=== PATIENT | female | born 1980 | race African-American/Black ===

== ENCOUNTER 2016-05-15 19:17 | Emergency (ER) | payer OTHER ==
--- NOTE | ~2016-05-15 | CT71 ---
[facility] RADIOLOGY TEXT RESULTS PATIENT: ELOINA CRYSTAL LOCATION: [facility] : 76 UNIT #: [id number] AGE: [address]: Brandy White MD SEX: F ORDER DR: [id number] [address] [address] [id number] E MR#: [id number] Acc #: [id number] NAME: ELOINA CRYSTAL : 1980 SEX: F STUDY DATE/TIME: 05/15/2016 20:11 UNIT: [facility] ROOM: STUDY DESCRIPTION: CT Head Wo Contrast Attending Physician: Brandy White M.D. Ordering Physician: Brandy White M.D. Primary Care Physician: Primary Care Physician No MEDICAL IMAGING REPORT This report is preliminary unless electronic signature is present EXAM Head CT without contrast HISTORY Seizure today, previous seizure 4 weeks ago. Eyes deviated. Generalized shaking. Headache right frontal area. TECHNIQUE This CT examination was performed with one or more of the following radiation dose reduction techniques: automatic exposure control, adjustment of mA and/or kV according to patient size, and iterative reconstruction. COMMENT Routine noncontrast head CT is reviewed. No comparison. The mastoid air cells are clear. The visualized paranasal sinuses are clear. No displaced calvarial fracture. There is no evidence for acute intracranial hemorrhage or extraaxial fluid collection. The ventricles are normal in size and configuration. The lee-white junction is well maintained. The basilar cisterns are patent. No acute cortical infarct. No intracranial mass effect. IMPRESSION Negative noncontrast head CT. Dictated by... Abeba Schwartz M.D. [facility] RADIOLOGY TEXT RESULTS PATIENT: ELOINA CRYSTAL LOCATION: [facility] : 76 UNIT #: [id number] AGE: [address]: Brandy White MD SEX: F ORDER DR: THIS IS AN ELECTRONICALLY VERIFIED REPORT Abeba Schwartz M.D. at 05/16/2016 12:57 PM John TD: 05/16/2016 10:28 JOB #: [id number] MEDICAL IMAGING REPORT COPY
--- NOTE | ~2016-05-15 | EKG ---
PATIENT: ELOINA CRYSTAL UNIT #: [id number] Ventricular Rate: 68 BPM Atrial Rate: 68 BPM P-R Interval: 172 ms QRS Duration: 96 ms Q-T Interval: 384 ms QTC Calculation(Bezet): 408 ms P [place]: 55 degrees Calculated R [place]: 60 degrees Calculated T [place]: 17 degrees Diagnosis Line: Normal sinus rhythm Diagnosis Line: Normal ECG Diagnosis Line: No previous ECGs available Diagnosis Line: Confirmed by FORD GARVIN MD ([id number]) on 05/16/2016 Diagnosis Line: 5:43:48 PM INTERPRETING MD: VIRGIE ARIAS
[~2016-05-15 19:17] MED LIST: LORTAB 5/500 TA1 TA1 PO
[2016-05-15 19:58] LABS: BASOPHIL# 0.1 X10e3 (0-0.3); BASOPHIL% 0.7 % (0-2.5); DIFF IND NO; EOSINOPHIL# 0.2 X10e3 (0-0.7); EOSINOPHIL% 2.7 % (0.0-7.0); HEMATOCRIT 36.3 % (35.0-45.0); HEMOGLOBIN 12.2 gm/dL (12.0-16.0); LYMPHOCYTE# 2.5 X10e3 (1.0-3.5); MEAN CELL VOLUME 88.3 FL (83-96); MEAN CORPUSCULAR HEMOGLOBIN 29.6 PG (28-34); MEAN CORPUSCULAR HGB CONC 33.5 g/dL (30-36); MEAN PLATELET VOLUME 7.1 FL (6.5-11.5); MONOCYTE# 0.6 X10e3 (0-1.0); MONOCYTE% 7.4 % (3.0-12.0); NEUTROPHIL# 4.9 X10e3 (1.5-7.1); NEUTROPHIL% 59.2 % (40-75); PLATELET COUNT 342 X10e3 (140-420); RED BLOOD COUNT 4.11 X10e (3.90-5.30); RED CELL DISTRIBUTION WIDTH 13.7 % (11.0-15.5); WHITE BLOOD COUNT 8.3 X10e3 (4.0-10.5)
[2016-05-15 20:11] LABS: URINE SOURCE CLEAN CATCH
[2016-05-15 20:28] LABS: URBCS1 AUWI 0-2 /[HPF] (0-2); URINE APPEARANCE CLEAR; URINE BILIRUBIN NEG (NEG); URINE BLOOD NEG (NEG); URINE COLOR YELLOW; URINE GLUCOSE NORM (NEG); URINE KETONE NEG (NEG); URINE LEUKOCYTE ESTERASE NEG (NEG); URINE NITRATE NEG (NEG); URINE PROTEIN NEG (NEG); URINE SPECIFIC GRAVITY 1.015 (1.003-1.035); URINE UROBILINOGEN 0.2 MG/DL (NEG)
[2016-05-15 20:29] LABS: CULTURE INDICATED? NO; UWBCS1 AUWI 0-2 (0-5)
[2016-05-15 20:31] LABS: AMPHETAMINE NEG (NEG); BARBITURATES NEG (NEG); BENZODIAZEPINES NEG (NEG); COCAINE NEG (NEG); MARIJUANA POS (NEG); OPIATES NEG (NEG); TRICYCLIC ANTIDEPRESSANTS NEG (NEG); U METHADONE NEG (NEG)
[2016-05-15 20:38] LABS: ALBUMIN SERUM 3.9 g/dL (3.5-5.0); ALCOHOL BLOOD <5 mg/dL (0); ALKALINE PHOSPHATASE 55 U/L (32-92); ALT (SGPT) 17 U/L (10-40); AST (SGOT) 19 U/L (10-42); BILIRUBIN, DIRECT 0.1 mg/dL (0.0-0.2); BILIRUBIN,INDIRECT 0.3 mg/dL (0.0-0.9); BILIRUBIN,TOTAL 0.4 mg/dL (0.2-2.0); BLOOD UREA NITROGEN 13 mg/dL (9-23); CALCIUM SERUM 9.7 mg/dL (8.4-10.2); CARBON DIOXIDE 26 mmol/L (22-31); CHLORIDE 104 mmol/L (100-111); GLOM FILT RATE Estimated ABOVE60 mL/min (>60); GLUCOSE FASTING 85 mg/dL (70-110); POTASSIUM 3.4 mmol/L (3.5-5.1); PROTEIN TOTAL SERUM 6.9 g/dL (6.0-8.3); SODIUM 137 mmol/L (135-145)
== END 2016-05-15 22:20 | disposition home or self-care (01) ==
LOC: CED 19:17
PROVIDERS: Emergency Medicine
DX: R56.9 Unspecified convulsions (principal); I10 Essential (primary) hypertension
CPT/HCPCS: 36415; 70450; 80048; 80076; 80307; 81003; 82947; 84703; 85025; 93005; 96374; 99284; G0480; J1953

== ENCOUNTER → 2016-08-01 | Outpatient (CLI) | payer OTHER ==
--- NOTE | ~2016-08-01 | MR17 ---
[facility] A Service of [facility] RADIOLOGY TEXT RESULTS PATIENT: ELOINA CRYSTAL LOCATION: [facility] : 76 UNIT #: [id number] AGE: [address]: Charly Brunson II, MD SEX: F ORDER DR: [id number] [facility] [address] [place], [place] [address] [id number] O MR#: [id number] Acc #: [id number] NAME: ELOINA CRYSTAL : 1980 SEX: F STUDY DATE/TIME: 08/01/2016 13:39 UNIT: [facility] ROOM: STUDY DESCRIPTION: MR Brain WWo Contrast Attending Physician: Charly Brunson II., M.D. Referring Physician: Charly Brunson II., M.D. Ordering Physician: Charly Brunson II., M.D. Primary Care Physician: Jennifer Bean M.D. MRI CENTER REPORT This report is preliminary unless electronic signature is present. EXAM MRI of brain with and without. HISTORY Seizure disorder, seizures since April 2016. Seizures occur during sleep. No recent trauma. History of hypertension. No history of cancer. TECHNIQUE MRI of the brain was performed prior to and following intravenous administration of 20 mL of MultiHance. COMPARISON There is a head CT for comparison from 05/15/16. FINDINGS There is no evidence for a recent ischemic insult on the diffusion series. There is a partially empty sella with some sella remodelling. There is no Chiari-I malformation. There is no extraaxial fluid collection. The ventricles are normal in size and configuration. The lee-white junction is well-maintained. The major intracranial flow voids are maintained. The mastoid air cells are clear. The visualized paranasal sinuses show only minor mucosal thickening. There is concern for a migrational abnormality involving the left medial temporal lobe posteriorly. There appears to be a segment of abnormally thickened cortical lee matter protruding medially from the left posterior hippocampus best appreciated along the left posterolateral aspect of the midbrain. Area of interest measures about 2 cm oblique AP dimension, and about 8 mm SI and ML dimension. 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 Please correlate with the patient's EEG findings. There is no MRI evidence for intracranial hemorrhage. Following contrast administration, there is no pathologic intracranial enhancement. [facility] A Service of [facility] RADIOLOGY TEXT RESULTS PATIENT: ELOINA CRYSTAL LOCATION: [facility] : 76 UNIT #: [id number] AGE: [address]: Charly Brunson II, MD SEX: F ORDER DR: IMPRESSION 1. Findings are concerning for an area of migrational abnormality resulting in abnormal thickening of the cortical lee matter at the posteromedial aspect of left temporal lobe along the posterior aspect of the hippocampus. 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 Please correlate further clinically with site of seizure focus since this is a potential candidate. See full description of abnormalities. 2. Patient has a partially empty sella with some sellar remodelling. This is of uncertain further significance. There is no Chiari-I malformation. STAT * RESULT Dictated by... Abeba Schwartz M.D. THIS IS AN ELECTRONICALLY VERIFIED REPORT Abeba Schwartz M.D. at 08/02/2016 7:04 PM Zachary TD: 08/02/2016 16:27 JOB #: [id number] MRI CENTER REPORT Page 1 of 1 COPY
--- NOTE | ~2016-08-01 | EE ---
Unit #: [id number] #: [id number] Patient: ELOINA CRYSTAL [id number] [address] [address] [id number] O MR#: [id number] NAME: ELOINA CRYSTAL : 1980 SEX: F STUDY DATE/TIME: 08/01/2016 UNIT: [facility] ROOM: STUDY DESCRIPTION: EEG Attending Physician: Charly Brunson II., M.D. Referring Physician: Charly Brunson II., M.D. Primary Care Physician: Jennifer Bean M.D. NEURODIAGNOSTICS REPORT EXAM EEG REASON FOR STUDY Seizures. TECH [employer] TECHNICAL INFORMATION This is a routine EEG performed using the standard International 10-20 System of electrode placement. Photic stimulation was performed. Hyperventilation was also performed. REPORT Throughout the entire study, the best background rhythm seen is approximately 10 Hz. This rhythm is seen in both posterior head regions symmetrically and does attenuate to eye opening and closure. Photic stimulation was performed which did not elicit any epileptiform abnormalities. However, a good photic driving response was seen. Hyperventilation was also performed which failed to reproduce any abnormal build-up. Throughout the entire study, there was no electrographic seizures recorded nor were there any discrete independent epileptiform abnormalities seen. INTERPRETATION This is a normal awake EEG. A normal EEG does not rule out the possibility of a seizure disorder. Clinical correlation is advised. Dictated by... Charly Brunson II., M.D. GWS/yusef TD: 08/06/2016 07:25 JOB #: [id number] Unit #: [id number] #: [id number] Patient: ELOINA CRYSTAL NEURODIAGNOSTICS REPORT Page 1 of 1 X NEURODIAGNOSTICS REPORT
[2016-08-01 14:20] LABS: POC - CREATININE 1.08 mg/dL (0.44-1.03); POC - GFR >60.0 mL/min (>60)
== END | disposition home or self-care (01) ==
LOC: CEEG 11:15
PROVIDERS: Psychiatry & Neurology Neurology
DX: G40.909 Epilepsy, unspecified, not intractable, without status epilepticus (principal); E23.6 Other disorders of pituitary gland; R93.0 Abnormal findings on diagnostic imaging of skull and head, not elsewhere classified
CPT/HCPCS: 70553; 82565; 95816; A9577